=== PATIENT | male | born 1960 | race Caucasian/White ===

== ENCOUNTER → 2024-12-15 09:51 | Outpatient (REF) | payer OTHER, SELFPAY | LOC: HWRAD 09:51 | PROVIDERS: ATTENDING PHYSICIAN Family Medicine | DX: R31.9 Hematuria, unspecified (principal) | CPT/HCPCS: 74176 ==

== ENCOUNTER 2025-05-23 17:10 | Emergency (ER) | payer OTHER, SELFPAY ==
[2025-05-23 17:12] VITALS: BP 153/103
[2025-05-23 17:48] VITALS: BMI 26.8
[2025-05-23 17:51] VITALS: BP 135/99
[2025-05-23 18:10] LABS: Hematocrit 36.5 % (39.0-52.0); Hemoglobin 12.7 g/dL (13.0-18.0); Mean Corp Hgb Conc. 34.8 g/dL (33.0-37.0); Mean Corpuscular Volume 90.8 fL (80.0-94.0); Nucleated Red Blood Cells % 0 % (-); Platelet Count 263 10^3/uL (130-400); Red Cell Dist. Width 13.2 % (11.5-14.5)
[2025-05-23 18:31] LABS: ALT (SGPT) 25 U/L (0-50); AST (SGOT) 26 U/L (17-59); Albumin 3.8 g/dl (3.5-5.0); Alkaline Phosphatase 49 U/L (38-126); Blood Urea Nitrogen 19 mg/dl (9-20); Calcium 9.1 mg/dl (8.4-10.2); Carbon Dioxide 30 mmol/L (22-30); Chloride 107 mmol/L (98-107); Estimated Creatinine Clearance 96 ml/min; Glucose 110 mg/dl (70-99); Potassium 4.4 mmol/L (3.5-5.1); Sodium 142 mmol/L (135-145); Total Protein 7.2 g/dl (6.3-8.2); eGFR > 60.00
--- NOTE | 2025-05-23 18:37 | ED.GENMED ---
History of Present Illness
<Taya Tejada PA-C - Last Filed: 05/24/25 01:45>
General
Chief Complaint: Oral/Mouth Problem
Source: patient
Exam Limitations: none
Time Seen by Provider: 05/23/25 18:26
Nursing documentation reviewed up to this point in time: agreed with
History of Present Illness
History of Present Illness:
Note:
CHIEF COMPLAINT(S)
Jaw pain and swelling, neck pain, headache
HISTORY OF PRESENT ILLNESS
The patient is a 64-year-old male who presents with jaw pain and swelling, initiated with dental pain approximately one week ago. The patient was unable to see his dentist until Sunday. On that visit, the dentist diagnosed a need for a root canal
and prescribed amoxicillin for swelling. By , the patient reported worsening symptoms, specifically swelling in the right lower jaw. The dentist referred the patient to an global compensation director who further evaluated the tooth, suspected a necrotic
root, and switched the antibiotic to Augmentin. Despite antibiotic treatment, the patient reports experiencing significant discomfort, particularly at night, noting an incident at 3 AM where pain intensified and persisted despite medication. The
patient has been managing the pain with Tylenol due to contraindication with ibuprofen while on a blood thinner for prior pulmonary embolism.
The patient reports that yesterday at approximately 11 AM, he developed neck pain, which became severe enough to cause pacing and discomfort. Later in the evening, around 3 PM, the patient experienced an episode of lightheadedness and headache with
heart palpitations, prompting additional Tylenol use. Neck pain improved by 5:15 PM and currently remains mild, with a slight headache still present. The patient reports difficulty sleeping due to pain and mild difficulty swallowing secondary to jaw
discomfort. The patient has undergone previous radiographic imaging, believed to be a CBCT scan, which did not show evidence of abscess formation. He expresses concern that his symptoms may suggest a deeper infection beyond the oral cavity.
CHRONIC MEDICAL CONDITIONS SIGNIFICANTLY AFFECTING CARE
History of pulmonary embolism; currently on anticoagulation therapy.
SOCIAL HISTORY
The patient currently experiences difficulty eating due to jaw pain and has lost weight. He reports consuming soup and yogurt but finds it challenging to maintain proper hydration and nutrition.
MEDICATIONS
Currently taking Augmentin, Tylenol, and a blood thinner (unspecified brand).
REVIEW OF SYSTEMS
- Head: Headache present, described as mild at the time of evaluation.
- Neck: Previous neck pain improved but noted discomfort during specific movements.
- Cardiovascular: Reports feeling lightheaded and experiencing palpitations.
- Ear, Nose, and Tongue: Reports jaw pain radiating from the tooth.
- General: Difficulty eating and maintaining hydration due to pain.
PHYSICAL EXAM
- Nursing notes reviewed and vital signs reviewed.
General: Patient is well appearing and in no acute distress; non-toxic
Skin: Warm and dry, no rashes or lesions
Head: Normocephalic, atraumatic. Submandibular lymphadenopathy.
Eyes: Sclera non-icteric. EOMs intact.
Mouth: Dental caries noted to left lower teeth, no other obvious intra-oral lesions
Cardiac: Regular rate and rhythm, no murmurs
Peripheral Vascular: No lower extremity swelling or edema
Pulm: Normal respiratory effort, no wheezes, rales, or rhonchi
Neuro: CN II-XII intact, no focal neurologic deficits.
Psychiatric: Appropriate mood and affect.
PROBLEM LIST
Acute Problems:
- Jaw pain and potential dental infection
- Neck pain
- Headache
Chronic Problems:
- History of pulmonary embolism on anticoagulant therapy.
PLAN
1. Order a computed tomography scan of the neck to rule out a deeper infection or abscess formation.
2. Continue antibiotic therapy
3. Administer intravenous fluids to support hydration due to nutritional concerns.
4. Encourage continuation of Tylenol, advise against the use of non-steroidal anti-inflammatory drugs due to anticoagulation therapy.
5. Scheduled follow-up with an global compensation director for a root canal to evaluate further management.
6. Monitor symptoms closely, and return for reassessment if any worsening or new symptoms develop.
DIFFERENTIAL DIAGNOSIS
The Differential Diagnosis includes, in no particular order and is not limited to:
1. Dental abscess or infection
2. Infected tooth with necrotic pulp
3. Submandibular space infection
4. Temporomandibular joint disorder
5. Cervical lymphadenopathy
6. Sinusitis
7. Osteomyelitis of the jaw
8. Pulmonary embolism (recurrent)
9. Anxiety or panic attack
10. Musculoskeletal strain or arthritis in the neck
CHART REVIEW
No prior ER physician documentation or discharge summaries to review
MDM/disposition
The patient is a 64-year-old male who presents with jaw pain and swelling, initiated with dental pain approximately one week ago. He is currently taking Augmentin and is scheduled to have a root canal within the coming days. He reports that he had
episode today of neck pain which concerned him as well as a headache but both the headache and neck pain has resolved. Patient feels like his problems got worse. On exam, I do feel some some lymphadenopathy but no obvious swelling, he has no pain
with movement of his neck no anterior neck swelling. He went for CAT scan which was negative for any deep space infection but did show mild to moderate degenerative changes of the cervical spine as well as focal low-density collection medial to the
anterior body of the left side in the mid nipple compatible with a small abscess. Manage attending aware. Will reexamined patient and noted a small area of swelling anterior to the tooth at the caries. No clear drainable fluid collection. Will
change patient to clindamycin and discharged with close follow-up. I did send out a call the patient's global compensation director. After discharge, I heard back from patient and got to us. I updated global compensation director that patient had been seen your ear today had a
small abscess. Endotist will call patient. Patient was instructed to return should he develop anterior neck swelling, difficulty swallowing, persistent headache, fevers or chills, or any other symptoms worrisome to him.
Review of Systems
<Taya Tejada PA-C - Last Filed: 05/24/25 01:45>
Review of Systems
All Other Systems: ROS reviewed and negative except as documented in HPI and ROS
Phy Exam
<Taya Tejada PA-C - Last Filed: 05/24/25 01:45>
Physical Exam
Physical Exam:
see hpi
Course
<Taya Tejada PA-C - Last Filed: 05/24/25 01:45>
Orders/Labs/Results
Orders:
Orders
05/23/25 17:59
CMP [Comprehensive Metabolic Panel] Urgent
Complete Blood Count/With Diff Urgent
05/23/25 18:55
CT Neck With Iv Contrast Urgent
Comment:
Reason For Exam: posterior and lateral neck pain following dental
05/23/25 21:22
Clindamycin HCl [Cleocin] 300 mg PO NOW STA
05/23/25 21:24
Ketorolac [Toradol] 15 mg IV NOW STA
05/23/25 21:45
Oxycodone [Roxicodone] 5 mg PO NOW STA
Abnormal Lab Results
05/23/25
17:59
RBC 4.02 L 10^6/uL
(4.70-6.10)
Hgb 12.7 L g/dL
(13.0-18.0)
Hct 36.5 L %
(39.0-52.0)
MCH 31.6 H pg
(27.0-31.0)
Absolute Neuts (auto) 6.7 H 10^3/uL
(1.4-6.5)
Absolute Monos (auto) 1.4 H 10^3/uL
(0.1-0.6)
Lymphocytes % 18.7 L %
(20.5-51.1)
Monocytes % 13.4 H %
(1.7-9.3)
Glucose 110 H mg/dl
(70-99)
05/23/25 17:59
05/23/25 17:59
Vital Signs
Initial and Last Documented VS:
Initial Vital Signs
Temp Pulse Resp BP Pulse Ox
98.5 F 74 18 153/103 98
05/23/25 17:12 05/23/25 17:12 05/23/25 17:12 05/23/25 17:12 05/23/25 17:12
Last Documented Vital Signs
Temp Pulse Resp BP Pulse Ox
98.7 F 75 18 153/92 97
05/23/25 21:02 05/23/25 21:02 05/23/25 21:02 05/23/25 21:02 05/23/25 21:02
<Tereso Padgett MD - Last Filed: 05/23/25 21:12>
Orders/Labs/Results
Orders:
Orders
05/23/25 17:59
CMP [Comprehensive Metabolic Panel] Urgent
Complete Blood Count/With Diff Urgent
05/23/25 18:55
CT Neck With Iv Contrast Urgent
Comment:
Reason For Exam: posterior and lateral neck pain following dental
05/23/25 21:22
Clindamycin HCl [Cleocin] 300 mg PO NOW STA
05/23/25 21:24
Ketorolac [Toradol] 15 mg IV NOW STA
05/23/25 21:45
Oxycodone [Roxicodone] 5 mg PO NOW STA
Abnormal Lab Results
05/23/25
17:59
RBC 4.02 L 10^6/uL
(4.70-6.10)
Hgb 12.7 L g/dL
(13.0-18.0)
Hct 36.5 L %
(39.0-52.0)
MCH 31.6 H pg
(27.0-31.0)
Absolute Neuts (auto) 6.7 H 10^3/uL
(1.4-6.5)
Absolute Monos (auto) 1.4 H 10^3/uL
(0.1-0.6)
Lymphocytes % 18.7 L %
(20.5-51.1)
Monocytes % 13.4 H %
(1.7-9.3)
Glucose 110 H mg/dl
(70-99)
05/23/25 17:59
05/23/25 17:59
Vital Signs
Initial and Last Documented VS:
Initial Vital Signs
Temp Pulse Resp BP Pulse Ox
98.5 F 74 18 153/103 98
05/23/25 17:12 05/23/25 17:12 05/23/25 17:12 05/23/25 17:12 05/23/25 17:12
Last Documented Vital Signs
Temp Pulse Resp BP Pulse Ox
98.7 F 75 18 153/92 97
05/23/25 21:02 05/23/25 21:02 05/23/25 21:02 05/23/25 21:02 05/23/25 21:02
<Taya Tejada PA-C - Last Filed: 05/24/25 01:45>
*Pulse Oximetry
SaO2: 98
Oxygen Mode of Delivery: Room air
Patient hypoxic: no
*Critical Care Note
Total Time (30-74mins, 75-104mins- exclusive of procedures): Not Applicable
ED Attending Note
<Taya Tejada PA-C - Last Filed: 05/24/25 01:45>
-
Portions of this chart may have been created with voice recognition software.� Occasional wrong word or��sound alike� substitutions may have occurred due to the inherent limitations of voice recognition software.
<Tereso Padgett MD - Last Filed: 05/23/25 21:12>
ED Attending Note
Patient seen and examined by attending physician: Yes
I performed the substantive portion of visit, reviewed & personally made and approve the management plan that is documented in note by myself or JOSÉ MIGUEL.: Yes
ED Attending Note:
64-year-old male has been ongoing dental issues. Has a cracked tooth. Was switched from amoxicillin to Augmentin 2 days ago. Complaining of some pain earlier in the posterior part of his neck extending to his head. This has resolved. He is back
to baseline. This was with no analgesic pain medications. Currently complaining of his baseline dental issue.
On exam patient is nontoxic in no distress. Warm and dry. Perfusing well. Speech is normal. No trismus no drooling no stridor. Airway is clear. He has no neck swelling. He has a To the left lower #17 tooth. He has a slight hardness to the
medial aspect of the gum although no fluctuance or tenderness. He has some mild submandibular adenopathy on the side.
Impression is ongoing dental issues. This posterior neck pain resolved. He is back to baseline. CTA shows a questionable small abscess. On examination do not feel drainage is appropriate. It is small hard not fluctuant and nontender. We will
change him to clindamycin and follow-up close
Discharge Plan
Departure
Patient Disposition: Home (Routine Discharge)
Date of Disposition: 05/23/25
Time of Disposition: 21:29
Patient with high blood pressure during this ER visit?: Yes
Condition: Good
Discharge Problem:
Dental abscess
Instructions: Tooth Abscess (DC), Dental Pain (DC), BLOOD PRESSURE
Prescriptions:
New
clindamycin HCl [Cleocin HCl] 300 mg capsule
300 mg PO TID 10 Days Qty: 30 0RF
hydrocodone-acetaminophen 5-300 mg tablet
1 tab PO Q6H Qty: 8 0RF
Referrals:
UNKNOWN - PT DOES,NOT KNOW [Family Provider]
Activity Restrictions/Additional Instructions:
Please call your global compensation director first thing Sunday morning to schedule follow-up appointment. Please stop taking Augmentin. Clindamycin has been sent to her pharmacy. Please take 1 tablet 3 times daily for 10 days.
PLEASE RETURN EMERGENCY DEPARTMENT SHOULD YOU DEVELOP NECK SWELLING, TROUBLE SWALLOWING, ACUTE WORSENING OF YOUR PAIN, FEVERS OR CHILLS, CHEST PAIN, SHORTNESS OF BREATH, OR ANY OTHER SIGNS OR SYMPTOMS WORRISOME TO YOU.
Interventions
Interventions:
*Risk Screen - Suicide Last Done: 05/23/25 17:12
*General Assessment Last Done: 05/23/25 17:12
*Neglect/Abuse Screening Last Done: 05/23/25 17:12
*ED- Fall Risk Assessment Last Done: 05/23/25 17:49
*ED COVID-19 Vaccine History Last Done: 05/23/25 17:49
*Nursing Disposition Last Done: 05/23/25 21:54
Discharge Date and Time
Discharge Date/Time: 05/23/25 21:57
Print Language: NIGERIAN
[2025-05-23 21:02] VITALS: BP 153/92
[2025-05-23] MEDS: CLEOCIN 300 MG PO (21:37)
[2025-05-23] MEDS: ROXICODONE 5 MG PO (21:49)
== END 2025-05-23 21:57 | disposition home or self-care (01) ==
LOC: EMR 17:10
PROVIDERS: EMERGENCY PHYSICIAN Emergency Medicine
DX: K04.7 Periapical abscess without sinus (principal); Z79.01 Long term (current) use of anticoagulants; Z86.711 Personal history of pulmonary embolism
CPT/HCPCS: 99284; 70491; 80053; 85025; Q9967

== ENCOUNTER 2025-05-24 02:51 | Emergency (ER) | payer OTHER, SELFPAY ==
[2025-05-24 02:59] VITALS: BP 151/99
[2025-05-24] MEDS: PERCOCET 5/325 1 TABLET PO (03:51)
[2025-05-24 04:00] VITALS: BP 125/87
--- NOTE | 2025-05-24 04:33 | ED.GENMED ---
History of Present Illness
General
Chief Complaint: Dental Problem
Time Seen by Provider: 05/24/25 03:14
History of Present Illness
History of Present Illness:
64-year-old male presenting to the emergency department for persistent left dental pain. Patient notes left lower dental pain, ongoing for the past several days. Patient was seen in the hospital yesterday, had CT imaging which did show small
dental abscess. Patient has an appointment scheduled with his sharepoint application developer this week for a root canal. Patient had been started on clindamycin and Vicodin, however has not been able to fill the prescription for the Vicodin yet. Notes that he has
been unable to sleep secondary to pain. Denies fever or difficulty swallowing. Denies additional acute medical complaints
Phy Exam
Physical Exam
Physical Exam:
General: Well-appearing, no clinical signs of dehydration, nontoxic and in no acute distress
HEENT: protecting airway. Minimal swelling to the left side of face. Slight discomfort on palpation of tooth #19. No palpation of external abscess. No trismus. No oropharyngeal swelling. Normal phonation of voice
Neck: appears supple
CV: Normal heart rate
Resp: No accessory muscle use, no increased work of breathing
Abd: no distension
Extremities: No deformities, no swelling, no erythema, pulses and sensation intact
Neuro: alert, no focal neurologic deficit
: deferred
Rectal: deferred
Psych: Normal affect
Skin: Intact
Course
Orders/Labs/Results
Orders:
Orders
05/24/25 03:46
Oxycodone/Acetaminophen [Percocet 5/325] 1 tablet PO NOW STA
Vital Signs
Initial and Last Documented VS:
Initial Vital Signs
Temp Pulse Resp BP Pulse Ox
98.0 F 88 18 151/99 99
05/24/25 02:59 05/24/25 02:59 05/24/25 02:59 05/24/25 02:59 05/24/25 02:59
Last Documented Vital Signs
Temp Pulse Resp BP Pulse Ox
98.0 F 88 18 151/99 99
05/24/25 02:59 05/24/25 02:59 05/24/25 02:59 05/24/25 02:59 05/24/25 02:59
MDM/Problems Addressed
MDM/Problems Addressed:
64-year-old male presenting for persistent left dental pain. Vital signs on arrival are significant for mild hypertension.
On exam, patient nontoxic. Minimal swelling to the face. No concerning features on exam -no trismus, normal phonation of voice, no oropharyngeal swelling or edema, no palpable abscess collection. Patient's ER visit reviewed from yesterday, had
thorough workup including CT of the jaw, small abscess. Patient with appropriate antibiotic therapy, clindamycin, only had 1 dose thus far. Prior provider had also discussed with patient's sharepoint application developer, established follow-up. Patient's primary
concern is pain control. Percocet administered in the ER. Dental block also performed with resolution of pain. Patient has a prescription for Vicodin already sent to the pharmacy, however was unable to secondary to it being open until the morning
time. Plan for discharge for outpatient dental follow-up and pain control. Return precautions discussed.
*Pulse Oximetry
SaO2: 99
Oxygen Mode of Delivery: Room air
Patient hypoxic: no
*Critical Care Note
Total Time (30-74mins, 75-104mins- exclusive of procedures): Not Applicable
ED Attending Note
-
Portions of this chart may have been created with voice recognition software.� Occasional wrong word or��sound alike� substitutions may have occurred due to the inherent limitations of voice recognition software.
Discharge Plan
Departure
Patient Disposition: Home (Routine Discharge)
Date of Disposition: 05/24/25
Time of Disposition: 04:32
Patient with high blood pressure during this ER visit?: Yes
Condition: Good
Discharge Problem:
Pain, dental
Instructions: Dental Pain (DC), BLOOD PRESSURE
Prescriptions:
No Action
clindamycin HCl [Cleocin HCl] 300 mg capsule
300 mg PO TID 10 Days Qty: 30 0RF
hydrocodone-acetaminophen 5-300 mg tablet
1 tab PO Q6H Qty: 8 0RF
Referrals:
Herbert Dowd DO [Family Provider, Family Practice]
Activity Restrictions/Additional Instructions:
You were seen in the emergency department for persistent dental pain
You were given a dental block with improvement of your pain. We recommend following up closely with your sharepoint application developer as scheduled.
Please follow-up closely with your primary care physician.
Return to the emergency department for any worsening of your symptoms including increased pain or increased swelling to the face, or any development of chest pain, difficulty breathing, abdominal pain with persistent vomiting and inability to
tolerate food or liquid by mouth (concern for dehydration), weakness, headache or confusion, fever greater than 100.4, or any additional symptoms that are concerning to you.
Thank you for choosing [facility].
Interventions
Interventions:
*Risk Screen - Suicide Last Done: 05/24/25 02:53
*General Assessment Last Done: 05/24/25 02:53
*Neglect/Abuse Screening Last Done: 05/24/25 02:53
*ED COVID-19 Vaccine History Last Done: 05/24/25 02:56
Discharge Date and Time
Print Language: BARBADIAN
[2025-05-24 04:58] VITALS: BP 125/87
== END 2025-05-24 05:00 | disposition home or self-care (01) ==
LOC: EMR 02:51
PROVIDERS: EMERGENCY PHYSICIAN Student in an Organized Health Care Education/Training Program; FAMILY PHYSICIAN Family Medicine
DX: K08.89 Other specified disorders of teeth and supporting structures (principal)
CPT/HCPCS: 99282; 64400